=== PATIENT | female | born 1985 | race Caucasian/White ===

== ENCOUNTER 2024-08-20 11:45 | Outpatient (AMB) | payer MEDICAID, SELFPAY ==
[2024-08-20 11:51] VITALS: BP 143/88; PULSE 83; RESP 16; TEMP 36.6; O2SAT 98; BMI 25.6
--- NOTE | 2024-08-20 11:51 | GYNCLNT_ITS ---
Vital Signs 08/20/24 11:51 Height 1.63 m Height Method Stated Weight 67.812 kg Weight Measurement Method Standing Scale BMI 25.6 BP 143/88 H Blood Pressure Source Automatic Cuff Blood Pressure Location Left Upper Arm Position Sitting Respiration 16 Pulse 83 Pulse Source Monitor Temp 97.8 F Temp Source Oral Pulse Oximetry (%) 98 Oxygen Delivery Method Room Air Allergies/Home Meds Allergies & Medications Allergies No Known Allergies Allergy (Verified 08/20/24 11:53) Medication Reconciliation No Known Home Medications 08/20/24 [History Confirmed 08/20/24] Intake Visit Data Collection New Patient or Established: New Patient not seen in past 3 years at [facility] (considered New) Reason for Visit:: DENTAL CLEARANCE Seen by Clinical Staff ONLY (RN/MA): No Hvac Tech Required: No Do You Feel Safe at Home: Yes Authorities Contacted: N/A PCP or OBGYN visit in last 3 months: No Hx Now: Yes Are you currently on any form of Control: No Last menstrual period: 02/07/24 Pain Present Currently: No Pain Scale Used: Ivan-Mo/Numerical Pain scale:: 0 Smoking Status Smoking Status: Current every day smoker Cessation Counseling Provided: VASYL was advised that quitting smoking is the single most important factor to protect the health of themselves and their family. Discussed the benefits of quitting smoking with patient. Encouraged patient to quit smoking and provided Cessation assistance materials and resources. 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 1. Little interest or pleasure in doing things: not at all 2. Feeling down, depressed, or hopeless: not at all Total score: 0 PHQ-9 3. Trouble falling or staying asleep, or sleeping too much: Not at all 4. Feeling tired or having little energy: Not at all 5. Poor appetite or overeating: Not at all 6. Feeling bad about yourself - or that you are a failure or have let yourself or your family down: Not at all 7. Trouble concentrating on things, such as reading the newspaper or watching television: Not at all 8. Moving or speaking so slowly that other people could have noticed? - Or the opposite - being so fidgety or restless that you have been moving around a lot more than usual: not at all 9. Thoughts that you would be better off or of hurting yourself in some way: Not at all Total score: 0 Source: Developed by Drs. Oniel Adrian, Luz Elena Santos, Izaiah Torres and colleagues, with an educational dashawn from [employer]. Depression screen completed yes Social History Living Situation History Lives With: Family Housing: House Tobacco History Smoking Status: Current every day smoker Alcohol History Alcohol Intake: Former Alcohol Intake Frequency: holidays/special occasions only (States she drinks about 5 beers on weekends) Domestic Abuse History Do You Feel Safe at Home: Yes Past Medical History Past Medical History Have you ever been diagnosed with any of the following: Neurological Problems Cerebrovascular Accident (CVA): No Transient Ischemic Attacks (TIA): No Dementia: No Alzheimer's Disease: No Parkinson's Disease: No Seizures: No Cardiology Problems Myocardial Infarction: No Cardiac Arrhythmia: No Atrial Fibrillation: No Angina: No Congestive Heart Failure: No Respiratory Problems Chronic Obstructive Pulmonary Disease (COPD): No Genital/Urinary Problems Renal Disease: No Kidney Stones: Yes Reproductive Problems Endometriosis: Yes Musculoskeletal Problems Muscular Dystrophy: No Myasthenia Gravis: No Marfan's Syndrome: No Bone Cancer: No Head,Eye,Nose,Throat Problems Cataracts: No Glaucoma: No Blind: No Retinal Detachment: No Macular Degeneration: No Endocrine Problems Diabetes Mellitus Type 1: No Diabetes Mellitus Type 2: No History of Present Illness HPI Narrative Chief Complaint care, dental pain requiring extraction History of Present Illness Vasyl is a woman presenting for her first obstetric visit. She is approximately 25 weeks and 6 days with her fourth child, with a due date of November 14. This follows a very early miscarriage, which she attributes to endometriosis and fibroid problems. Vasyl reports that she has not yet seen a doctor for this , having only obtained an ultrasound at a clinic in [place] to establish her due date. She has not had any blood work done. Vasyl mentions experiencing dental pain, for which she was initially planning a root canal. However, due to the , the dentist decided to postpone the procedure. The pain has since worsened, leading Vasyl to take too much medicine for pain relief. She is now scheduled for a tooth extraction of a small one in the front. Regarding her obstetric history, Vasyl has had three previous vaginal deliveries. Her youngest child is 12 years old as of today. She has lived in various locations for her previous pregnancies, including [place], [place], and [place]. Dr. Morales was involved in her gynecological care at some point in the past. 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 He recently had his second leg amputated. Medical History - Endometriosis - Uterine fibroids Medications and Supplements - Pain medicine - Taking too much for tooth pain Family History - Ex-: Type 1 diabetes, double amputee Social History - Occupation: Provides in-home care for ex-, who is a double amputee - Children: Has 4 children, youngest is 12 years old - Marital Status: (ex- mentioned) - Living Situation: Has lived in multiple locations including [facility], and [place] Review of Systems HEENT: Positive for dental pain. - Heart Rate: 168 bpm () Physical Examination Abdomen: heartbeat detected at 168 bpm. movement observed. Laboratory, Imaging, and Diagnostic Test Results - Date: TueAug 20 2024 - Bedside ultrasound: - Gestational age: 25 weeks and 6 days - heart rate: 168 bpm - position: Head down - activity: Active - Head circumference: 2 (units not specified) - Previous results: - Dental X-rays: Performed prior to current visit (exact date not specified) - Ultrasound at [facility]: Performed prior to current visit (exact date not specified) - Estimated due date: November 14, 2024 Review of Systems Review of Systems Systems Reviewed: All systems reviewed, normal except as documented Exam General Limitations: no limitations General Appearance: alert, in no apparent distress, comfortable, cooperative, healthy appearing, well developed and well groomed Head Head exam: atraumatic, normocephalic and normal inspection Chest Chest inspection: Present normal inspection and symmetric chest wall rise Abdominal Abdominal exam: Present soft and normal bowel sounds Psych Psychiatric exam: Present normal affect and normal mood Skin Skin exam: Present warm, dry, intact and normal color Assessment & Plan Diagnosis / Problem List (1) Supervision of high risk , unspecified, second trimester: Status: Acute (2) Pain, dental: Status: Acute Plan Vasyl, , presents at approximately 25 weeks gestation for initial visit with limited prior care, reporting dental pain and planned tooth extraction. Assessment: Patient is a at 25 weeks and 6 days gestation based on ultrasound measurement, consistent with reported due date of November 14. Limited care to date, with only a dating ultrasound performed at a clinic in [place]. No prior blood work or formal obstetric visits. Portable ultrasound performed today shows appropriate growth with cephalic presentation. heart rate 168 bpm. Patient reports active movement. Plan: - Perform comprehensive initial labs - Schedule formal ultrasound for detailed anatomy assessment - Genetic screening to be performed, including sex determination - Schedule follow-up visit for detailed history and physical examination - Provide patient with ultrasound images Dental pain Assessment: Patient reports dental pain requiring frequent pain medication use. Previous x-rays were performed, and root canal was initially planned but postponed due to . Extraction of a small tooth (not a large molar) is now scheduled. Plan: - Provide clearance letter for dental extraction - Educate patient on safety of dental x-rays during if needed History of endometriosis and fibroids Assessment: Patient reports history of endometriosis and fibroids, which may have contributed to a very early loss prior to current . 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
== END 2024-08-20 12:11 | disposition home or self-care (01) ==
LOC: HODSOBC 11:45
PROVIDERS: PCP Family Medicine; Referring Provider Family Medicine; Supervising Provider Obstetrics & Gynecology; Visit Provider Obstetrics & Gynecology
DX: O09.522 Supervision of elderly multigravida, second trimester (principal); O09.32 Supervision of pregnancy with insufficient antenatal care, second trimester; O99.612 Diseases of the digestive system complicating pregnancy, second trimester; K08.89 Other specified disorders of teeth and supporting structures; O99.332 Smoking (tobacco) complicating pregnancy, second trimester; O09.292 Supervision of pregnancy with other poor reproductive or obstetric history, second trimester; Z3A.25 25 weeks gestation of pregnancy; F17.210 Nicotine dependence, cigarettes, uncomplicated; Z71.6 Tobacco abuse counseling; Z87.42 Personal history of other diseases of the female genital tract
CPT/HCPCS: 99203; G0463

== ENCOUNTER 2024-09-11 08:51 | Outpatient (AMB) | payer MEDICAID, SELFPAY ==
[2024-09-11 09:10] VITALS: BP 120/79; PULSE 82; RESP 18; TEMP 36.3; O2SAT 97; BMI 26.3
--- NOTE | 2024-09-11 09:10 | OBCLNT_ITS ---
Vital Signs 09/11/24 09:10 Height 1.63 m Height Method Stated Weight 70.023 kg Weight Measurement Method Standing Scale BMI 26.3 BP 120/79 Blood Pressure Source Automatic Cuff Blood Pressure Location Left Upper Arm Position Sitting Respiration 18 Pulse 82 Pulse Source Monitor Temp 97.4 F Temp Source Oral Pulse Oximetry (%) 97 Oxygen Delivery Method Room Air Allergies/Home Meds Allergies & Medications Allergies No Known Allergies Allergy (Verified 09/11/24 09:12) Medication Reconciliation No Known Home Medications 08/20/24 [History Confirmed 09/11/24] Intake Visit Data Collection New Patient or Established: Established Patient (seen at [facility] within 3 years) Reason for Visit:: - visit at 29 weeks and 0 days - Numbness in hands during sleep Seen by Clinical Staff ONLY (RN/MA): No Apple Thinner Required: No Do You Feel Safe at Home: Yes Authorities Contacted: N/A PCP or OBGYN visit in last 3 months: Yes Hx Now: Yes Are you currently on any form of Control: No Pain Present Currently: No Pain Scale Used: Ivan-Mo/Numerical Pain scale:: 0 Smoking Status Smoking Status: Former smoker Questionnaires Covid-19 Vaccine Questionnaire Has patient been vacinated for Covid-19 Have you been vacinated for Covid-19: Yes PHQ-9 PHQ-2 Over the last 2 weeks, how often have you been bothered by any of the following problems? 1. Little interest or pleasure in doing things: not at all 2. Feeling down, depressed, or hopeless: not at all Total score: 0 PHQ-9 3. Trouble falling or staying asleep, or sleeping too much: Not at all 4. Feeling tired or having little energy: Not at all 5. Poor appetite or overeating: Not at all 6. Feeling bad about yourself - or that you are a failure or have let yourself or your family down: Not at all 7. Trouble concentrating on things, such as reading the newspaper or watching television: Not at all 8. Moving or speaking so slowly that other people could have noticed? - Or the opposite - being so fidgety or restless that you have been moving around a lot more than usual: not at all 9. Thoughts that you would be better off or of hurting yourself in some way: Not at all Total score: 0 Source: Developed by Drs. Oniel Adrian, Luz Elena Santos, Izaiah Torres and colleagues, with an educational dashawn from [employer]. Depression screen completed yes Social History Living Situation History Lives With: Family Housing: House Tobacco History Smoking Status: Former smoker Alcohol History Alcohol Intake: Former Alcohol Intake Frequency: holidays/special occasions only (States she drinks about 5 beers on weekends) Domestic Abuse History Do You Feel Safe at Home: Yes Past Medical History Past Medical History Have you ever been diagnosed with any of the following: Neurological Problems Cerebrovascular Accident (CVA): No Transient Ischemic Attacks (TIA): No Dementia: No Alzheimer's Disease: No Parkinson's Disease: No Seizures: No Guillain-[place] Syndrome: No Cardiology Problems Myocardial Infarction: No Cardiac Arrhythmia: No Atrial Fibrillation: No Angina: No Congestive Heart Failure: No Hypertension: Yes Respiratory Problems Chronic Obstructive Pulmonary Disease (COPD): No Pneumonia: No Tuberculosis: No Hx Cough: No Cough: No Wheezing: No Chest Deformities: No Smoking: No Smoking Cessation Counseling: No Smoking Exposure: No Tobacco Use: No Clubbing: No Stomache/Intestinal Problems Liver Cancer: No Hepatitis: No Cirrhosis: No Genital/Urinary Problems Renal Disease: No Kidney Stones: Yes Reproductive Problems Breast Cancer: No Endometriosis: Yes Fibroids: Yes Genital Herpes: No Gonorrhea: No Previous Pregnancies: Yes Syphilis: No Musculoskeletal Problems Muscular Dystrophy: No Myasthenia Gravis: No Marfan's Syndrome: No Bone Cancer: No Head,Eye,Nose,Throat Problems Cataracts: No Glaucoma: No Blind: No Retinal Detachment: No Macular Degeneration: No Endocrine Problems Diabetes Mellitus Type 1: No Diabetes Mellitus Type 2: No Graves' Disease: No Blood Problems Anemia: No Leukemia: No Hemophilia: No Psychologic Problems Schizophrenia: No Recreational Drug Use: No Bipolar Disorder: No Depression: No Anxiety: No Other Problems Hospitalization: No Down Syndrome: No Autism: No Hepatitis A: No Hepatitis B: No Hepatitis C: No Lung Cancer: No Surgical History Angioplasty: No Appendectomy: No Bariatric Surgery: No Breast Surgery: No Cancer Surgery: No History of Present Illness HPI Narrative - Nevin Rodriguez is a 39-year-old at 29 weeks and 0 days gestation presenting for a visit. She has a history of 3 full-term vaginal deliveries and presented late to care. - At the last visit, she complained of leg cramping. - She was advised on hydration and magnesium supplementation. - Current complaints: - Numbness in hands while sleeping - Occurs when sleeping on her side and switching back and forth - Consistent with carpal tunnel syndrome - Patient was concerned about the weight of the baby affecting her wrists - Clarified that this would not affect wrists, but could affect lower limbs - Patient denies having an ultrasound when lab tests were ordered No contractions/ LOF/VB, reports good FM No SYED/VC/RUQ/Epig pain Care OB Visit Log OB Flowsheet Initial Weight: Not Recorded Date -?-?-?-?-?-?-?-?-?-?-?-?- EGA Weight Edema CTX Effacement BP Fundal ht Pres Dilation Effacement Station Visit Note Alb Glu FHR Mov 08/27/24 -?-?-?-?-?-?-?-?-?-?-?-?- 26w 6d 68.719 kg 147/84 29 w eeks based on last menstrual period of February 06. - Referral to [facility] for com prehensive ultrasound - Review [facility] blood work results when available - Follow-up appointment in 2 weeks to: - Review ultrasound and blood test rep orts - Confirm due date - Discuss delivery plan - Recommend [id number] magnesium g lycinate for muscle pains and cramps - Take at night - Encourage adequate hydration - Continue current vitamins active 09/11/24 -?-?-?-?-?-?-?-?-?-?-?-?- 29w 0d 70.023 kg 120/79 Shaylee Rodriguez, a 39-year-old at 29w0d gestation, presents for routine care. She has a history of three prior term vaginal deliveries and began care late. Previously reported leg cramps were addressed with hydration and magnesium. She now reports bilateral hand numbness during sleep, particularly when shifting side to side, consistent with carpal tunnel syndrome. She had concerns about weight affecting her wrists, which was clarified as unrelated. She denies receiving an ultrasound when labs were last drawn. heart rate today was 145 bpm. Trace ketones in urine suggest mild dehydration. Male fetus confirmed via prior genome testing. Plan: Encourage increased hydration to correct trace ketonuria Recommend warm water wrist soaks and mob ility exercises for carpal tunnel symptoms Follow up with [facility] for anatomy ultrasound scheduling Routine follow-up in 2 weeks Continue routine surveillance and education on labor si gns 150 active JUAN Calculator Estimated Delivery Date Method Current WG Current Estimate 11/27/24 Ultrasound #1 29w 2d Other Estimates 11/27/24 LMP (Certain) 29w 2d Exam General General Appearance: alert, in no apparent distress and healthy appearing Head Head exam: atraumatic Neck Neck exam: Present normal inspection and trachea midline Chest Chest inspection: Present normal inspection and symmetric chest wall rise External exam: Present normal external exam; Absent tenderness Neuro Neurological exam: Present oriented X3 Psych Psychiatric exam: Present normal affect and normal mood Assessment & Plan Diagnosis / Problem List (1) Supervision of high risk , unspecified, third trimester: Status: Acute Plan Problem List - , 29 weeks gestation - Dehydration - Carpal tunnel syndrome Assessment - Intrauterine at 29 weeks and 0 days gestation - 4, Para 3 - Carpal tunnel syndrome symptoms - Trace ketones in urine, indicative of dehydration - Male fetus confirmed by maternity genome testing - History of leg cramping (previously reported) Plan - Increase fluid intake to address dehydration and ketones in urine - Perform wrist exercises: dip wrists in warm water and move them daily for carpal tunnel symptoms - Monitor for call from [facility] regarding anatomy ultrasound - Follow up in 2 weeks Educated the patient on labor signs, including regular contractions, lower back pain, and changes in vaginal discharge. Advised avoiding heavy lifting and getting adequate rest. Instructed to contact the office immediately if any signs occur. Discussed the importance of a balanced diet rich in folic acid, iron, and calcium, and provided a list of recommended and to-avoid foods. Emphasized avoiding high-sugar foods to reduce gestational diabetes risk. Encouraged hydration and frequent, small meals for energy.. Office Procedures OB Clinic LOC & Office Proc's Nursing/Assessment Patient Status: Established Patient OB Clinic Nursing Assessment: Medication Reconciliation, Update PMH in EMR and Vital Signs OB Clinic Coordination of Care: AMA, Complex Care and Chronic Disease 1-5, Consent,records obtained, informed consent, Education Simp Pt/Fam, Results/Orders obtained and Staff clarify orders Special Needs: Heart tones Miscellaneous Interventions: Blood/Urine Collection Established Patient Charge Established Patient Point Assignment: 170 Established Patient Point Charge: EP Level 5 (160-above)
== END 2024-09-11 09:22 | disposition home or self-care (01) ==
LOC: HODSOBC 08:51
PROVIDERS: PCP Obstetrics & Gynecology; Referring Provider Obstetrics & Gynecology; Supervising Provider Obstetrics & Gynecology; Visit Provider Obstetrics & Gynecology
DX: O09.523 Supervision of elderly multigravida, third trimester (principal); O09.893 Supervision of other high risk pregnancies, third trimester; Z3A.29 29 weeks gestation of pregnancy; O99.283 Endocrine, nutritional and metabolic diseases complicating pregnancy, third trimester; O99.891 Other specified diseases and conditions complicating pregnancy; E86.0 Dehydration; G56.03 Carpal tunnel syndrome, bilateral upper limbs; Z87.891 Personal history of nicotine dependence
CPT/HCPCS: 99215; G0463

== ENCOUNTER 2024-10-19 10:36 | Outpatient (AMB) | payer MEDICAID, SELFPAY ==
[2024-10-19 11:04] VITALS: BP 138/84; PULSE 75; RESP 17; TEMP 36.4; O2SAT 98; BMI 26.9
--- NOTE | 2024-10-19 11:04 | OBCLNT_ITS ---
Vital Signs 10/19/24 11:04 Height 1.63 m Height Method Stated Weight 71.668 kg Weight Measurement Method Standing Scale BMI 26.9 BP 138/84 H Blood Pressure Source Automatic Cuff Blood Pressure Location Right Upper Arm Position Sitting Respiration 17 Pulse 75 Pulse Source Monitor Temp 97.5 F Temp Source Temporal Artery Scan Pulse Oximetry (%) 98 Oxygen Delivery Method Room Air Allergies/Home Meds Allergies & Medications Allergies No Known Allergies Allergy (Verified 10/19/24 11:05) Medication Reconciliation No Known Home Medications 08/20/24 [History Confirmed 10/19/24] Intake Visit Data Collection New Patient or Established: Established Patient (seen at [facility] within 3 years) Reason for Visit:: OBC Seen by Clinical Staff ONLY (RN/MA): No Ccie Required: No Do You Feel Safe at Home: Yes Authorities Contacted: N/A PCP or OBGYN visit in last 3 months: Yes Date of Last PCP or OBGYN visit: 09/11/24 Hx Now: Yes Are you currently on any form of Control: No Pain Present Currently: Yes Pain Location: Foot and Hip Pain Scale Used: Ivan-Mo/Numerical Pain scale:: 2 Smoking Status Smoking Status: Former smoker Questionnaires Covid-19 Vaccine Questionnaire Has patient been vacinated for Covid-19 Have you been vacinated for Covid-19: No PHQ-9 PHQ-2 Over the last 2 weeks, how often have you been bothered by any of the following problems? 1. Little interest or pleasure in doing things: not at all 2. Feeling down, depressed, or hopeless: not at all Total score: 0 PHQ-9 3. Trouble falling or staying asleep, or sleeping too much: Not at all 4. Feeling tired or having little energy: Not at all 5. Poor appetite or overeating: Not at all 6. Feeling bad about yourself - or that you are a failure or have let yourself or your family down: Not at all 7. Trouble concentrating on things, such as reading the newspaper or watching television: Not at all 8. Moving or speaking so slowly that other people could have noticed? - Or the opposite - being so fidgety or restless that you have been moving around a lot more than usual: not at all 9. Thoughts that you would be better off or of hurting yourself in some way: Not at all Total score: 0 If you checked off any problems, how difficult have these problems made it for you to do your work, take care of things at home, or get along with other people?: not difficult at all Source: Developed by Drs. Oniel Adrian, Luz Elena Santos, Izaiah Torres and colleagues, with an educational dashawn from [employer]. 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 No contractions, LOF, VB and reports good FM. Denies SYED, VC, and epigastric pain. - Nimisha Rodriguez is a 34-week and 3-day woman () presenting for a routine visit. - Estimated due date: 11/27/2024 based on ultrasound at 25 weeks and 6 days. - Patient presented late to care. - History of all previous vaginal deliveries. - No current complaints reported. - Denies: - Contractions - Loss of fluids - Vaginal bleeding - Reports good movement. - Interested in epidural for pain management during labor. - Social support: Mother and good friend will be present during labor. - Father of the baby is not involved and resides in [place]. Review of Systems Review of Systems Systems Reviewed: All systems reviewed, normal except as documented Care OB Visit Log OB Flowsheet Initial Weight: Not Recorded Date -?-?-?-?-?-?-?-?-?-?-?-?- EGA Weight BP Alb Glu CTX Pres Fundal ht FHR Mov Dilation Station Effacement Hx Notes Visit Note 08/27/24 -?-?-?-?-?-?-?-?-?-?-?-?- 26w 6d 68.719 kg 147/84 active 29 weeks based on last menstrual period of February 06. - Referral to [facility] for com prehensive ultrasound - Review [facility] blood work results when available - Follow-up appointment in 2 weeks to: - Review ultrasound and blood test rep orts - Confirm due date - Discuss delivery plan - Recommend [id number]-nidsnbe magnesium g lycinate for muscle pains and cramps - Take at night - Encourage adequate hydration - Continue current vitamins 09/11/24 -?-?-?-?-?-?-?-?-?-?-?-?- 29w 0d 70.023 kg 120/79 150 active Nevin Rodriguez, a 39-year-old at 29w0d gestation, presents for routine care. She has a history of three prior term vaginal deliveries and began care late. Previously reported leg cramps were addressed with hydration and magnesium. She now reports bilateral hand numbness during sleep, particularly when shifting side to side, consistent with carpal tunnel syndrome. She had concerns about weight affecting her wrists, which was clarified as unrelated. She denies receiving an ultrasound when labs were last drawn. heart rate today was 145 bpm. Trace ketones in urine suggest mild dehydration. Male fetus confirmed via prior genome testing. Plan: Encourage increased hydration to correct trace ketonuria Recommend warm water wrist soaks and mob ility exercises for carpal tunnel symptoms Follow up with [facility] for anatomy ultrasound scheduling Routine follow-up in 2 weeks Continue routine surveillance and education on pret erm labor signs 10/19/24 -?-?-?-?-?-?-?-?-?-?-?-?- 34w 3d 71.668 kg 138/84 at 34w3d with JUAN 11/27/24 (based on 25w6d US), presents for routine visit. No CTX/LOF/VB, reports good FM. Denies SYED/VC/epig pain. All prior vaginal deliveries. NIPT negative, sex male. panel normal. Social support includes mother and friend; father not involved. Interested in epidural. Awaiting anatomy scan results from [facility] (10/29). FHT: 149 bpm. Plan: F/u in 2 weeks to review US and fi nalize JUAN. GBS culture next visit. Discuss elective induction at 39 weeks (target ~7/16 if JUAN confirmed). Reviewed labor precautions, preeclampsia signs, and delivery prep. heart ton es: 149 bpm. Laboratory, Imaging, and Diagnostic Test Results - Date: 08/29/2024 - panel: - Hepatitis B: Negative - Hepatitis C: Negative - RPR: Non-reactive - Rubella: Immune - Blood group: O-positive - Antibody screen: Negative - HIV: Non-reactive - Chlamydia: Negative - Hemoglobin: 12.3 g/dL - Platelets: 283 - Urinalysis: Lactobacillus species pres ent, otherwise within normal limits - NIPT: Negative for trisomies, se x consistent with male - Ultrasound (08/20/2024 at 25 weeks and 6 days): Used for dating, estimated due date 11/27/2024 JUAN Calculator Estimated Delivery Date Method Current WG Current Estimate 11/27/24 Ultrasound #1 35w 1d Other Estimates 11/27/24 LMP (Certain) 35w 1d Office Procedures OB Clinic LOC & Office Proc's Nursing/Assessment Patient Status: Established Patient OB Clinic Nursing Assessment: Medication Reconciliation, Update PMH in EMR and Vital Signs OB Clinic Coordination of Care: Complex Care and Chronic Disease 1-5, Consent,records obtained, informed consent, Education Simp Pt/Fam and Staff clarify orders Special Needs: Heart tones Established Patient Charge Established Patient Point Assignment: 115 Established Patient Point Charge: EP Level 3 (80-115) Assessment & Plan Diagnosis / Problem List (1) Supervision of high risk , unspecified, third trimester: Status: Acute Plan Problem List - , 34 weeks and 3 days gestation - 5, para 3013 - Late to care Assessment at 34 weeks 3 days gestation with JUAN 11/27/2024 based on 25w6d ultrasound on 08/20/2024. Late to care. History of all previous vaginal deliveries. panel (08/29/2024) negative for infectious diseases, blood type O+, antibody screen negative. NIPT negative for trisomies, sex male. Hemoglobin 12.3, platelets 283. Urinalysis showed lactobacillus species, otherwise WNL. Current visit: FHR 149 bpm, good movement, no contractions, no loss of fluids, no vaginal bleeding. Awaiting anatomy survey ultrasound results from [facility] on 10/29/2024 for potential JUAN adjustment. Patient considering 39-week elective induction. Plan - Ultrasound scheduled at [facility] on October 29, 2024 - Follow-up appointment in 2 weeks to review ultrasound report and finalize due date - Group B strep culture swab due at next appointment - Discuss potential 39-week induction at next appointment (tentatively November 07, 2024, if November 14 remains the due date) - Continue monitoring for signs of labor; patient instructed on labor precautions - Epidural planned for labor; mother and friend to be present during delivery 1. Progress Reviewed gestational age, growth, and heart rate. Planned frequent visits (every 2 weeks until 36 weeks, then weekly). 2. Instructed patient to monitor movements and report decreases immediately. 3. Testing Counseled on routine third-trimester labs per guidelines. Discussed potential need for ultrasound or monitoring based on risk factors. 4. Preeclampsia Precaution Educated on preeclampsia signs: severe headache, vision changes, right upper quadrant pain, sudden swelling. Advised urgent reporting of symptoms and discussed blood pressure monitoring if high risk. 5. Labor Precautions Reviewed labor signs: regular contractions, pelvic pressure, back pain, bleeding, or fluid leakage. Instructed to seek immediate care for these symptoms. 6. Lifestyle and Delivery Preparation Reinforced vitamins, nutrition, and safe activity. Discussed plan, pain management, and . Advised on labor preparation (e.g., hospital bag) and expectations. 7. Psychosocial Support Assessed emotional well-being and offered resources for mental health or parenting support.
== END 2024-10-19 11:15 | disposition home or self-care (01) ==
LOC: HODSOBC 10:36
PROVIDERS: PCP Obstetrics & Gynecology; Referring Provider Obstetrics & Gynecology; Supervising Provider Obstetrics & Gynecology; Visit Provider Obstetrics & Gynecology
DX: O09.523 Supervision of elderly multigravida, third trimester (principal); Z3A.34 34 weeks gestation of pregnancy; Z87.891 Personal history of nicotine dependence
CPT/HCPCS: 99213; G0463

== ENCOUNTER 2024-11-19 11:20 | Outpatient (AMB) | payer MEDICAID, SELFPAY ==
--- NOTE | 2024-11-19 11:34 | AMBOBPPN_ITS ---
Vital Signs 11/19/24 11:35 Height 1.63 m Height Method Stated Weight 65.828 kg Weight Measurement Method Standing Scale BMI 24.7 BP 142/90 H Blood Pressure Source Automatic Cuff Blood Pressure Location Right Upper Arm Position Sitting Respiration 17 Pulse 76 Pulse Source Monitor Temp 97.9 F Temp Source Temporal Artery Scan Pulse Oximetry (%) 97 Oxygen Delivery Method Room Air Allergies/Home Meds Allergies & Medications Allergies No Known Allergies Allergy (Verified 11/19/24 11:37) Medication Reconciliation No Known Home Medications 08/20/24 [History Confirmed 11/19/24] Intake Visit Data Collection New Patient or Established: Established Patient (seen at [facility] within 3 years) Reason for Visit:: Seen by Clinical Staff ONLY (RN/MA): No Internet Database Specialist Required: No Do You Feel Safe at Home: Yes Authorities Contacted: N/A PCP or OBGYN visit in last 3 months: Yes Date of Last PCP or OBGYN visit: 10/19/24 Hx Now: No Are you currently on any form of Control: No Pain Present Currently: No Pain Scale Used: Ivan-Mo/Numerical Pain scale:: 0 Smoking Status 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 Past Medical History: No Hx Breast Cancer, No Hx Cardiac Disorders, Yes Hx Hypertension, No Hx Anemia, No Hx Renal Disease, No Hx Diabetes Mellitus Type 1 and No Hx Diabetes Mellitus Type 2 Questionnaires Covid-19 Vaccine Questionnaire Has patient been vacinated for Covid-19 Have you been vacinated for Covid-19: No Social History Living Situation History Marital Status: Single Lives With: Family Housing: House Tobacco History Smoking Status: Former smoker Second Hand Smoke Exposure: No Alcohol History Alcohol Intake: Former Alcohol Intake Frequency: holidays/special occasions only (States she drinks about 5 beers on weekends) Domestic Abuse History Do You Feel Safe at Home: Yes EPDS - PP Depression Screening Prosser Pospartum Depression Screen I have been able to laugh and see the funny side of things: (0) As much as I always could I have looked forward with enjoyment to things: (0) As much as I ever did I have blamed myself unnecessarily when things went wrong: (0) No, never I have been anxious or worried for no good reason: (0) No, not at all I have felt scared or panicky for no very good reason: (0) No, not at all Things have been getting on top of me: (0) No, I have been coping as well as ever I have been so unhappy that I have had difficulty sleeping: (0) No, not at all I have felt sad or miserable: (0) No, not at all I have been so unhappy that I have been crying: (0) No, never The thought of harming myself has occurred to me: (0) Never EPDS completed yes Care OB Visit Log OB Flowsheet Initial Weight: Not Recorded Date -?-?-?-?-?-?-?-?-?-?-?-?- EGA Weight BP Alb Glu CTX Pres Fundal ht FHR Mov Dilation Station Effacement Hx Notes Visit Note 08/27/24 -?-?-?-?-?-?-?-?-?-?-?-?- 26w 6d 68.719 kg 147/84 active 29 weeks based on last menstrual period of February 06. - Referral to [facility] for com prehensive ultrasound - Review [facility] blood work results when available - Follow-up appointment in 2 weeks to: - Review ultrasound and blood test rep orts - Confirm due date - Discuss delivery plan - Recommend vqnc-sdi-trbgeiv magnesium g lycinate for muscle pains and cramps - Take at night - Encourage adequate hydration - Continue current vitamins 09/11/24 -?-?-?-?-?-?-?-?-?-?-?-?- 29w 0d 70.023 kg 120/79 150 active Nevin Rodriguez, a 39-year-old at 29w0d gestation, presents for routine care. She has a history of three prior term vaginal deliveries and began care late. Previously reported leg cramps were addressed with hydration and magnesium. She now reports bilateral hand numbness during sleep, particularly when shifting side to side, consistent with carpal tunnel syndrome. She had concerns about weight affecting her wrists, which was clarified as unrelated. She denies receiving an ultrasound when labs were last drawn. heart rate today was 145 bpm. Trace ketones in urine suggest mild dehydration. Male fetus confirmed via prior genome testing. Plan: Encourage increased hydration to correct trace ketonuria Recommend warm water wrist soaks and mob ility exercises for carpal tunnel symptoms Follow up with [facility] for anatomy ultrasound scheduling Routine follow-up in 2 weeks Continue routine surveillance and education on pret erm labor signs 10/19/24 -?-?--?-?-?-?-?-?-?-?-?-?- 34w 3d 71.668 kg 138/84 at 34w3d with JUAN 11/27/24 (based on 25w6d US), presents for routine visit. No CTX/LOF/VB, reports good FM. Denies SYED/VC/epig pain. All prior vaginal deliveries. NIPT negative, sex male. panel normal. Social support includes mother and friend; father not involved. Interested in epidural. Awaiting [facility] scan results from [facility] (10[facility]). FHT: 149 bpm. Plan: F/u in 2 weeks to review US and fi nalize JUAN. GBS culture next visit. Discuss elective induction at 39 weeks (target ~11/21 if JUAN confirmed). Reviewed labor precautions, preeclampsia signs, and delivery prep. heart ton es: 149 bpm. Laboratory, Imaging, and Diagnostic Test Results - Date: 08/29/2024 - panel: - Hepatitis B: Negative - Hepatitis C: Negative - RPR: Non-reactive - Rubella: Immune - Blood group: O-positive - Antibody screen: Negative - HIV: Non-reactive - Chlamydia: Negative - Hemoglobin: 12.3 g/dL - Platelets: 283 - Urinalysis: Lactobacillus species pres ent, otherwise within normal limits - NIPT: Negative for trisomies, se x consistent with male - Ultrasound (08/20/2024 at 25 weeks and 6 days): Used for dating, estimated due date 11/27/2024 JUAN Calculator Estimated Delivery Date Method Current WG Current Estimate 11/27/24 Ultrasound #1 38w 6d Other Estimates 11/27/24 LMP (Certain) 38w 6d Office Procedures OB Clinic LOC & Office Proc's Nursing/Assessment Patient Status: Established Patient OB Clinic Nursing Assessment: Medication Reconciliation, Update PMH in EMR and Vital Signs OB Clinic Coordination of Care: Complex Care and Chronic Disease 1-5, Consent,records obtained, informed consent, Education Simp Pt/Fam and Staff clarify orders Established Patient Charge Established Patient Point Assignment: 85 Post Follow-up Visit Post Follow up Visit: Yes Assessment & Plan Diagnosis / Problem List (1) Routine Follow-Up: (FP) Tobacco Smoking Status: Former smoker
[2024-11-19 11:35] VITALS: BP 142/90; PULSE 76; RESP 17; TEMP 36.6; O2SAT 97; BMI 24.7
== END 2024-11-19 11:43 | disposition home or self-care (01) ==
LOC: HODSOBC 11:20
PROVIDERS: Supervising Provider Obstetrics & Gynecology; Visit Provider Obstetrics & Gynecology
DX: Z39.2 Encounter for routine postpartum follow-up (principal); Z87.891 Personal history of nicotine dependence

== ENCOUNTER 2024-12-25 11:20 | Outpatient (AMB) | payer MEDICAID, SELFPAY ==
[2024-12-25 11:42] VITALS: BP 144/94; PULSE 84; RESP 16; TEMP 36.6; O2SAT 97; BMI 24.0
--- NOTE | 2024-12-25 11:42 | GYNCLNT_ITS ---
Vital Signs 12/25/24 11:42 Height 1.63 m Height Method Stated Weight 63.73 kg Weight Measurement Method Standing Scale BMI 24.0 BP 144/94 H Blood Pressure Source Automatic Cuff Blood Pressure Location Left Upper Arm Position Sitting Respiration 16 Pulse 84 Pulse Source Monitor Temp 98 F Temp Source Oral Pulse Oximetry (%) 97 Oxygen Delivery Method Room Air Allergies/Home Meds Allergies & Medications Allergies No Known Allergies Allergy (Verified 12/25/24 11:43) Medication Reconciliation nifedipine 30 mg tablet,extended release 30 mg PO QDAY 30 days #30 tabs 11/19/24 [Rx Confirmed 12/25/24] norelgestromin 150 mcg-e.estradiol 35 mcg/24 hr weekly transderm patch 1 patch transdermal Q7D 84 days #9 ea 12/25/24 [Rx] Intake Visit Data Collection New Patient or Established: Established Patient (seen at [facility] within 3 years) Reason for Visit:: DISCUSS LAB RESULTS Seen by Clinical Staff ONLY (RN/MA): No Cardiology Technologist Required: No Do You Feel Safe at Home: Yes Authorities Contacted: N/A PCP or OBGYN visit in last 3 months: Yes Hx Now: No Are you currently on any form of Control: Yes Last menstrual period: 12/23/24 Pain Present Currently: No Pain Scale Used: Ivan-Mo/Numerical Pain scale:: 0 Smoking Status Smoking Status: Former smoker 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 1. Little interest or pleasure in doing things: not at all 2. Feeling down, depressed, or hopeless: not at all Total score: 0 PHQ-9 3. Trouble falling or staying asleep, or sleeping too much: Not at all 4. Feeling tired or having little energy: Not at all 5. Poor appetite or overeating: Not at all 6. Feeling bad about yourself - or that you are a failure or have let yourself or your family down: Not at all 7. Trouble concentrating on things, such as reading the newspaper or watching television: Not at all 8. Moving or speaking so slowly that other people could have noticed? - Or the opposite - being so fidgety or restless that you have been moving around a lot more than usual: not at all 9. Thoughts that you would be better off or of hurting yourself in some way: Not at all Total score: 0 Source: Developed by Drs. Oniel Adrian, Luz Elena Santos, Izaiah Torres and colleagues, with an educational dashawn from [employer]. Depression screen completed yes Social History Living Situation History Lives With: Family Housing: House Tobacco History Smoking Status: Former smoker Second Hand Smoke Exposure: No Alcohol History Alcohol Intake: Former Alcohol Intake Frequency: holidays/special occasions only (States she drinks about 5 beers on weekends) Domestic Abuse History Do You Feel Safe at Home: Yes History of Present Illness HPI Narrative Nimisha Rodriguez, a patient who delivered in October, presents for follow- up of lab results ordered during a previous visit. She reports ongoing issues with high blood pressure, which remains elevated despite being prescribed medication. The patient admits to poor adherence with her blood pressure medication, which is prescribed once daily. She expresses concern about taking pills regularly and mentions being horrible at taking pills. This non-adherence has resulted in her blood pressure remaining as high as it was when she was seen in November. Nimisha reports having had her menstrual period since delivery. She discusses her previous use of Dayci, a long-cycle control pill, but expresses interest in alternative contraceptive methods due to her difficulty with daily pill adherence. She states she doesn't like the idea of any kind of implant. The patient denies any specific complaints related to her recovery or overall health. She inquires about the status of her other organs, particularly her kidneys, suggesting some anxiety about her overall health post-delivery. She has an obstetric history of A0 L1, having delivered in October 2024 approximately 2 months ago. Her course was complicated by elevated blood pressure. The patient has been taking blood pressure medicine once daily but not consistently. She discontinued iron supplement and Dayci control pill. She is a female who recently gave approximately 2 months ago. ROS: Positive for menstrual period. Negative except as stated above, limited to MANAGER DOME[employer] and pertinent complaints. Exam General General Appearance: alert, in no apparent distress and healthy appearing Head Head exam: atraumatic Neck Neck exam: Present normal inspection and trachea midline Chest Chest inspection: Present normal inspection and symmetric chest wall rise External exam: Present normal external exam; Absent tenderness Neuro Neurological exam: Present oriented X3 Psych Psychiatric exam: Present normal affect and normal mood Office Procedures OB Clinic LOC & Office Proc's Nursing/Assessment Patient Status: Established Patient OB Clinic Nursing Assessment: Medication Reconciliation, Update PMH in EMR and Vital Signs OB Clinic Coordination of Care: Complex Care and Chronic Disease 1-5, Consent,records obtained, informed consent, Lab and Imaging orders, Results/Orders obtained and Staff clarify orders Established Patient Charge Established Patient Point Assignment: 90 Established Patient Point Charge: EP Level 3 (80-115) Assessment & Plan Diagnosis / Problem List (1) Encounter for initial prescription of transdermal patch hormonal contraceptive device: Status: Acute Plan Hypertension: - Blood pressure remains elevated, comparable to levels observed in November. - Patient admits to inconsistent adherence to prescribed antihypertensive medication. - Concern for chronic hypertension in period requiring long-term management. Plan: - Continue prescribed antihypertensive medication, once daily. - Educate patient on importance of medication adherence. - Recommend establishing care with an internal medicine physician for long-term blood pressure management. - Suggest Dr. Gallegos, who specializes in blood pressure and cardiology, for follow-up care. Laboratory Evaluation: - Recent laboratory studies largely unremarkable including preeclampsia panel, coagulation profile, iron profile, and comprehensive metabolic panel. - Slight elevation in ALT attributed to childbirth process. - Hemoglobin level of 12.9 g/dL indicates absence of anemia. - Iron deficiency detected despite normal hemoglobin, consistent with expected changes. Plan: - Recommend increased dietary iron intake (red meat, spinach) to address iron deficiency. - Repeat laboratory studies in one month to ensure normalization of values. Contraception: - Patient expresses interest in contraception but reports difficulty with daily pill adherence and aversion to implantable methods. - Previously used Dayci, a long-cycle oral contraceptive. Plan: - Prescribe contraceptive patch for trial. - Educate on weekly application and potential reduced side effects compared to oral contraceptives. - Provide multiple refills. - Follow up to assess tolerability and effectiveness.
== END 2024-12-25 11:54 | disposition home or self-care (01) ==
PROVIDERS: Supervising Provider Obstetrics & Gynecology; Visit Provider Obstetrics & Gynecology
DX: Z30.016 Encounter for initial prescription of transdermal patch hormonal contraceptive device (principal); I10 Essential (primary) hypertension; Z87.891 Personal history of nicotine dependence; Z79.899 Other long term (current) drug therapy
CPT/HCPCS: 99213; G0463